=== PATIENT | male | born 1965 | race Caucasian/White ===

== ENCOUNTER 2016-07-20 20:20 | Emergency (ER) | payer OTHER ==
[~2016-07-20] VITALS: Ht 185.4 cm; Wt 81.5 kg
[~2016-07-20 20:20] MED LIST: ALBUTEROL17 G1 IH; ASPIR-TRIN325 M1 PO; ATARAX,VISTARIL25 MG PO; BACTRIM,SEPT1 TABLET PO; CIPROFLOXACIN H10 ML RIGHT EYE; DOXYCYCLINE HY100 M3 PO; DOXYCYCLINE HY100 MG PO; Flonase BOTH NARES; HABITROL,NICODE14 MG TD; MOBIC7.5 MG PO; NAPROSYN500 MG PO; NOHOMEMEDS; ZANTAC150 MG PO
[2016-07-20 21:46] LABS: EOSINOPHIL COUNT 0.1 K/uL (0-0.3); HEMATOCRIT 41.3 % (38.0-50.0); IMMATURE GRANULOCYTE (%) 0.3 % (0.0-0.7); IMMATURE GRANULOCYTE COUNT 0.2 K/uL; LYMPHOCYTE COUNT 1.7 K/uL (1.0-2.8); MCH 33.4 PG (29.0-34.0); MCHC 34.6 G/DL (30.0-36.0); MCV 96.5 FL (86-99); MONOCYTE (%) 10.9 % (3-12); MONOCYTE COUNT 0.7 K/uL (0-0.8); NEUTROPHIL (%) 60.5 % (45-76); NEUTROPHIL COUNT 3.8 K/uL (1.8-6.4); PLATELET COUNT 165 K/uL (156-360); RBC DIS.WIDTH-CV 12.8 % (11.8-14.6); RBC DIS.WIDTH-SD 43.7 % (39-53); RED BLOOD COUNT 4.28 M/uL (4.00-5.50); WHITE BLOOD COUNT 6.2 K/uL (4.1-10.2)
[2016-07-20 21:55] LABS: CHLORIDE 107 mEq/L (99-109); POTASSIUM 4.2 mEq/L (3.7-5.4); SODIUM 141 mEq/L (136-147)
[2016-07-20 21:57] LABS: GLUCOSE 95 mg/dL (70-99)
[2016-07-20 21:58] LABS: ANION GAP 9 MEQ/L (2-14)
[2016-07-20 21:58] LABS: D-DIMER ELISA 0.23 mg/L FEU (< 0.57)
[2016-07-20 22:00] LABS: GFR ESTIMATE (CALCULATED) > 59 mL/min/
[2016-07-20 22:01] LABS: UREA NITROGEN (BUN) 10 mg/dL (9-23)
[2016-07-20 22:08] LABS: TROP-I INTERPRETATION NEGATIVE; TROPONIN-I < 0.01 ng/mL (0.0-0.30)
[2016-07-20 23:59] LABS: TROP-I INTERPRETATION NEGATIVE; TROPONIN-I < 0.01 ng/mL (0.0-0.30)
[2016-07-21 00:39] VITALS: BP 110/68
== END 2016-07-21 00:41 | disposition home or self-care (01) ==
LOC: EME 20:20
PROVIDERS: Emergency Medicine
DX: R07.9 Chest pain, unspecified (principal); R06.00 Dyspnea, unspecified; K21.9 Gastro-esophageal reflux disease without esophagitis; F17.200 Nicotine dependence, unspecified, uncomplicated
CPT/HCPCS: 71020; 80048; 84484; 85025; 85379; 93005; 94640; 99281; 99285

== ENCOUNTER 2016-08-07 22:12 | Observation (INO) | payer OTHER ==
[~2016-08-07] VITALS: Ht 185.4 cm; Wt 79.5 kg
[2016-08-07 23:06] LABS: HEMATOCRIT 37.5 % (38.0-50.0); MCH 32.1 PG (29.0-34.0); MCHC 33.6 G/DL (30.0-36.0); MCV 95.7 FL (86-99); MEAN PLAT.VOLUME 10.3 uM^3 (9.0-12.4); RBC DIS.WIDTH-CV 12.2 % (11.8-14.6); RBC DIS.WIDTH-SD 41.6 % (39-53); RED BLOOD COUNT 3.92 M/uL (4.00-5.50)
[2016-08-07 23:07] LABS: PLATELET COUNT 331 K/uL (156-360); WHITE BLOOD COUNT 12.1 K/uL (4.1-10.2)
[2016-08-07 23:14] LABS: CHLORIDE 104 mEq/L (99-109); SODIUM 140 mEq/L (136-147)
[2016-08-07 23:15] LABS: GLUCOSE 113 mg/dL (70-99)
[2016-08-07 23:17] LABS: ANION GAP 11 MEQ/L (2-14)
[2016-08-07 23:19] LABS: GFR ESTIMATE (CALCULATED) > 59 mL/min/
[2016-08-07 23:20] LABS: UREA NITROGEN (BUN) 7 mg/dL (9-23)
[2016-08-07 23:24] LABS: TROP-I INTERPRETATION NEGATIVE; TROPONIN-I < 0.01 ng/mL (0.0-0.30)
[2016-08-08 10:07] LABS: EOSINOPHIL COUNT 0.1 K/uL (0-0.3); HEMATOCRIT 39.6 % (38.0-50.0); IMMATURE GRANULOCYTE (%) 0.8 % (0.0-0.7); IMMATURE GRANULOCYTE COUNT 0.8 K/uL; LYMPHOCYTE COUNT 2.1 K/uL (1.0-2.8); MCHC 33.8 G/DL (30.0-36.0); MCV 97.5 FL (86-99); MEAN PLAT.VOLUME 10.3 uM^3 (9.0-12.4); MONOCYTE (%) 8.3 % (3-12); MONOCYTE COUNT 0.8 K/uL (0-0.8); NEUTROPHIL (%) 67.7 % (45-76); NEUTROPHIL COUNT 6.4 K/uL (1.8-6.4); PLATELET COUNT 309 K/uL (156-360); RBC DIS.WIDTH-CV 12.4 % (11.8-14.6); RBC DIS.WIDTH-SD 43.4 % (39-53); RED BLOOD COUNT 4.06 M/uL (4.00-5.50); WHITE BLOOD COUNT 9.5 K/uL (4.1-10.2)
[2016-08-08 10:26] LABS: CHLORIDE 108 mEq/L (99-109); SODIUM 142 mEq/L (136-147)
[2016-08-08 10:27] LABS: GLUCOSE 90 mg/dL (70-99)
[2016-08-08 10:29] LABS: ANION GAP 8 MEQ/L (2-14)
[2016-08-08 10:31] LABS: GFR ESTIMATE (CALCULATED) > 59 mL/min/
[2016-08-08 10:32] LABS: UREA NITROGEN (BUN) 8 mg/dL (9-23)
[2016-08-08 12:27] LABS: INFLUENZA A VIRAL ANTIGEN NEGATIVE; INFLUENZA B VIRAL ANTIGEN NEGATIVE
[2016-08-08 16:00] VITALS: BP 123/80
[2016-08-09 00:01] VITALS: BP 128/78
[2016-08-09 07:42] LABS: INTERNAL CONTROL VALID? YES
[2016-08-09 09:13] VITALS: BP 120/87
[2016-08-09 09:24] LABS: EOSINOPHIL (%) 1.3 % (0-5); EOSINOPHIL COUNT 0.1 K/uL (0-0.3); HEMATOCRIT 37.3 % (38.0-50.0); IMMATURE GRANULOCYTE (%) 0.7 % (0.0-0.7); IMMATURE GRANULOCYTE COUNT 0.1 K/uL; LYMPHOCYTE COUNT 1.6 K/uL (1.0-2.8); MCH 33.1 PG (29.0-34.0); MCV 97.1 FL (86-99); MEAN PLAT.VOLUME 10.4 uM^3 (9.0-12.4); MONOCYTE (%) 5.1 % (3-12); MONOCYTE COUNT 0.4 K/uL (0-0.8); NEUTROPHIL (%) 73.3 % (45-76); NEUTROPHIL COUNT 6.1 K/uL (1.8-6.4); PLATELET COUNT 320 K/uL (156-360); RBC DIS.WIDTH-CV 12.9 % (11.8-14.6); RBC DIS.WIDTH-SD 45.7 % (39-53); RED BLOOD COUNT 3.84 M/uL (4.00-5.50); WHITE BLOOD COUNT 8.4 K/uL (4.1-10.2)
[2016-08-09 09:45] LABS: ANION GAP 9 MEQ/L (2-14); CHLORIDE 104 MEQ/L (99-109); GFR ESTIMATE (CALCULATED) > 59 mL/min/; POTASSIUM 4.2 MEQ/L (3.7-5.4); SAMPLE HEMOLYSIS CHECK 0; SAMPLE ICTERIC CHECK 0; SAMPLE LIPEMIA CHECK 0; SODIUM 138 MEQ/L (136-147); UREA NITROGEN (BUN) 8 mg/dL (9-23)
[2016-08-09 09:48] LABS: GLUCOSE 141 mg/dL (70-99)
[2016-08-09] MEDS ORDERED: AUGMENTIN875 MG PO (10:48)
[2016-08-09] MEDS ORDERED: VENTOLIN HFA18 GM IH (10:48)
[2016-08-09] MEDS ORDERED: SALINE NASAL SP45 ML BOTH NARES (10:48)
[2016-08-09] MEDS ORDERED: PERCOCET 5/31 TABLET PO (10:52)
[2016-08-09] MEDS ORDERED: MOTRIN400 MG PO (10:52)
== END 2016-08-09 14:59 | disposition home or self-care (01) ==
LOC: EME 22:12 → EXP 22:12 → 5EAST 08-08 03:14 → EDOF 08-08 03:14 → 5EAST 08-08 12:15
PROVIDERS: Student in an Organized Health Care Education/Training Program
DX: J18.1 Lobar pneumonia, unspecified organism (principal); Z59.0 Homelessness; Z87.891 Personal history of nicotine dependence; Z81.8 Family history of other mental and behavioral disorders; Z91.89 Other specified personal risk factors, not elsewhere classified; Z86.19 Personal history of other infectious and parasitic diseases
CPT/HCPCS: 71020; 80048; 83605; 84484; 85025; 85027; 87040; 87449; 87502; 93005; 94640; 94640 76; 99202; 99281; 99284; G0378; J0456; J0696; J1650; J1885; J1956; J7030; J7050

== ENCOUNTER 2016-12-01 05:41 | Emergency (ER) | payer OTHER ==
[~2016-12-01] VITALS: Ht 185.4 cm; Wt 84.7 kg
[~2016-12-01 05:41] MED LIST changes: +AUGMENTIN875 MG PO; +MOTRIN400 MG PO; +PERCOCET 5/31 TABLET PO; +SALINE NASAL SP45 ML BOTH NARES; +VENTOLIN HFA18 GM IH
[2016-12-01 06:47] LABS: EOSINOPHIL (%) 3.2 % (0-5); EOSINOPHIL COUNT 0.2 K/uL (0-0.3); HEMATOCRIT 42.2 % (38.0-50.0); IMMATURE GRANULOCYTE (%) 0.8 % (0.0-0.7); IMMATURE GRANULOCYTE COUNT 0.1 K/uL; INSTRUMENT ABS NEUTROPHIL CT 3.4 K/uL; LYMPHOCYTE COUNT 2.1 K/uL (1.0-2.8); MCH 32.7 PG (29.0-34.0); MCHC 34.1 G/DL (30.0-36.0); MCV 95.9 FL (86-99); MEAN PLAT.VOLUME 10.9 uM^3 (9.0-12.4); MONOCYTE (%) 7.9 % (3-12); MONOCYTE COUNT 0.5 K/uL (0-0.8); NEUTROPHIL (%) 53.9 % (45-76); NEUTROPHIL COUNT 3.4 K/uL (1.8-6.4); PLATELET COUNT 206 K/uL (156-360); RBC DIS.WIDTH-CV 12.5 % (11.8-14.6); WHITE BLOOD COUNT 6.2 K/uL (4.1-10.2)
[2016-12-01 06:55] LABS: INTER. NORMALIZED RATIO 1.1; PROTHROMBIN TIME 11.7 (9.2-11.2)
[2016-12-01 07:20] LABS: ANION GAP 10 MEQ/L (2-14); CHLORIDE 103 MEQ/L (99-109); GFR ESTIMATE (CALCULATED) > 59 mL/min/; GLUCOSE 96 mg/dL (70-99); POTASSIUM 4.1 MEQ/L (3.7-5.4); SAMPLE HEMOLYSIS CHECK 0; SAMPLE ICTERIC CHECK 0; SAMPLE LIPEMIA CHECK 0; SODIUM 139 MEQ/L (136-147); UREA NITROGEN (BUN) 13 mg/dL (9-23)
[2016-12-01] MEDS ORDERED: MEDROL DOSEPAK4 MG PO (08:21)
[2016-12-01] MEDS ORDERED: TYLENOL WITH C1 EACH PO (08:21)
[2016-12-01 08:27] VITALS: BP 129/91
== END 2016-12-01 08:32 | disposition home or self-care (01) ==
LOC: EME 05:41
PROVIDERS: Emergency Medicine
DX: S39.012A Strain of muscle, fascia and tendon of lower back, initial encounter (principal); R21 Rash and other nonspecific skin eruption; J45.909 Unspecified asthma, uncomplicated; K21.9 Gastro-esophageal reflux disease without esophagitis; F32.9 Major depressive disorder, single episode, unspecified; Z87.891 Personal history of nicotine dependence
CPT/HCPCS: 80048; 85025; 85610; 99281; 99284

== ENCOUNTER 2017-10-04 11:50 | Emergency (ER) | payer OTHER ==
[~2017-10-04] VITALS: Ht 185.4 cm; Wt 81.4 kg
[~2017-10-04 11:50] MED LIST changes: +MEDROL DOSEPAK4 MG PO; +TYLENOL WITH C1 EACH PO
[2017-10-04] MEDS ORDERED: CIPRO500 MG PO (15:04)
[2017-10-04 15:33] VITALS: BP 120/64
== END 2017-10-04 15:35 | disposition home or self-care (01) ==
LOC: EME 11:50
PROC: 3E0234Z Introduction of Serum, Toxoid and Vaccine into Muscle, Percutaneous Approach (ICD-10-PCS; principal; 2017-10-04)
DX: S91.332A Puncture wound without foreign body, left foot, initial encounter (principal); W25.XXXA Contact with sharp glass, initial encounter; Y93.01 Activity, walking, marching and hiking; Z23 Encounter for immunization; F32.9 Major depressive disorder, single episode, unspecified; J45.909 Unspecified asthma, uncomplicated; K21.9 Gastro-esophageal reflux disease without esophagitis; Z87.891 Personal history of nicotine dependence
CPT/HCPCS: 73630; 99281; 99284